=== PATIENT | male | born 1980 | race Caucasian/White ===

== ENCOUNTER → 2022-03-16 | Outpatient (CLI) | payer BC ==
--- NOTE | 2022-03-16 09:08 | KCIC ---
EXAM: Right hand, 3 views. HISTORY: Pain. COMPARISON: None. FINDINGS: 3 views of the right hand are obtained. There is fracture, dislocation or subluxation. No f oreign body is seen. Suspicious osseous lesion. IMPRESSION: No acute osseous finding. Electronically signed by: Haydee Cordero MD (03/16/2022 9:06 AM) [id number]
== END ==
LOC: KCIC 08:20
PROVIDERS: ATTEND Family Medicine
DX: M79.641 Pain in right hand (principal)
CPT/HCPCS: 73130